=== PATIENT | female | born 1955 | race Caucasian/White ===

== ENCOUNTER 2017-09-12 22:44 | Inpatient (IN) ==
[2017-09-12] MEDS ORDERED: VECURONIUM 10 MG VIAL IV ONE (22:46)
[2017-09-12] MEDS ORDERED: ETOMIDATE 20 MG/10 ML VIAL IV ONE (22:46)
[2017-09-12] MEDS ORDERED: SODIUM CHLORIDE 0.9% 1,000 ML IV STA (22:50)
[2017-09-12] MEDS ORDERED: VECURONIUM 10 MG VIAL IV STA (22:52)
[2017-09-12 23:03] LABS: ABG Base Excess -8.8 MMOL/L (-2.5-2.5); ABG HCO3 16.4 MMOL/L (20-26); ABG Oxygen Saturation 98.6 % (95-100); ABG PCO2 33.1 MM HG (35-48); ABG PH 7.313 (7.35-7.45); ABG PO2 192.3 MM HG (80-95); ABG TCO2 17.4 MMOL/L (23-27)
[2017-09-13 00:14] LABS: Basophils % 0.2 % (0.0-0.8); Hematocrit 34.4 VOL% (35.7-47.0); Hemoglobin 10.7 GM/DL (12.0-16.0); Immature Granulocytes % 0.8 %; Immature Granulocytes Absolute 0.18 #; Lymphocytes # 1.1 10*3/uL (1.4-4.0); Lymphocytes % 4.6 % (21.3-54.2); Mean Corpuscular HGB Conc 31.1 GM/DL (32-36); Mean Corpuscular Hemoglobin 29 PG (27-34); Mean Platelet Volume 9.2 FL (9.6-12.0); Monocytes # 0.7 10*3/uL (0.11-0.8); Monocytes % 3.1 % (1.7-12.7); Neutrophils % 91.3 % (38.7-73.9); Platelet Count 306 T/CUMM (130-400); Red Cell Distribution Width 13.4 % (9.3-17.3)
[2017-09-13 00:26] LABS: INR 1.2; PT Patient Result 12.3 SECS
[2017-09-13] MEDS ORDERED: ETOMIDATE 20 MG/10 ML VIAL IV STA (00:34)
[2017-09-13] MEDS ORDERED: PIPERACILLIN/TAZOBACTAM 3,375 MG in SODIUM CHLORIDE 0.9% 100 ML IV STA (00:37)
[2017-09-13] MEDS ORDERED: VANCOMYCIN INJ 1,000 MG in SODIUM CHLORIDE 0.9% 250 ML IV STA (00:37)
[2017-09-13 00:41] LABS: Ammonia 34 UMOL/L (11-32); Lactic Acid 5.8 MMOL/L (0.4-2.0)
[2017-09-13 00:47] LABS: Apearance,Urine CLOUDY (Clear); Bacteria,Urine Few /HPF (Few); Bilirubin,Urine Negative (Negative); Blood, Urine Large mg/dL (Negative); Glucose,Urine (UA) Negative (Negative); Ketones,Urine Negative (Negative); Mucus,Urine Occasional /LPF (Occasional); Nitrite,Urine Negative (Negative); Protein,Urine Negative; RBC,Urine 14 /HPF (0-4); Squamous Epithelial Cell,Urine Occasional /HPF (0-10); Urine Color Yellow (Yellow); Urine Specific Gravity 1.005 (1.001-1.035); Urine Urobilinogen < 2.0 EU/DL (0.2-1.0); WBC,Urine 431 /HPF (0-6)
[2017-09-13 00:49] LABS: Alanine Aminotransferase 1339 U/L (13-56); Albumin 2.8 G/DL (3.4-5.0); Alkaline Phosphatase 79 U/L (45-117); Aspartate Amino Transferase 2912 U/L (0-37); Blood Urea Nitrogen 29 MG/DL (7-18); Calcium 7.5 MG/DL (8.5-10.1); Glucose 59 MG/DL (74-106); Osmolality,Calculated 278.7 MOS/KG (273-304); Potassium 5.3 MMOL/L (3.5-5.1); Sodium 138 MMOL/L (136-145); Total Protein 6.9 G/DL (6.4-8.3)
[2017-09-13] MEDS ORDERED: PIPERACILLIN/TAZOBACTAM 3,375 MG VIAL IV ONE (01:08)
[2017-09-13] MEDS ORDERED: VANCOMYCIN 1,000 MG VIAL ONE (01:08)
[2017-09-13] MEDS ORDERED: SODIUM CHLORIDE 0.9% 1,850 ML IV ONE (01:15)
[2017-09-13] MEDS ORDERED: DEXTROSE 50% 25 GM/50 ML SYRINGE IV ONE (01:18)
[2017-09-13] MEDS ORDERED: DEXTROSE 50% 25 GM/50 ML VIAL IV STA (01:18)
[2017-09-13 01:21] LABS: Sedimentation Rate-Westergren 94 MM/HR (0-30)
[2017-09-13] MEDS ORDERED: cefTRIAXone 1,000 MG VIAL ONE (01:26)
[2017-09-13] MEDS ORDERED: SODIUM CHLORIDE 0.9% 1,000 ML IV SCH ×2 (01:30→03:00)
[2017-09-13] MEDS ORDERED: ONDANSETRON 4 MG/2 ML VIAL IV PRN (02:53)
[2017-09-13] MEDS ORDERED: ALBUTEROL/IPRATROPIUM 3 ML NEB RESP TX PRN (02:53)
[2017-09-13] MEDS ORDERED: ALBUTEROL 2.5 MG/3 ML NEB RESP TX PRN (02:53)
[2017-09-13] MEDS ORDERED: ACETAMINOPHEN 325 MG TABLET NG PRN (02:53)
[2017-09-13 03:30] LABS: Barbiturates Screen,Urine Negative (Negative); Benzodiazepines Screen,Urine Positive (Negative); Cannabinoid Screen,Urine Negative (Negative); Opiate Screen,Urine Positive (Negative); Phencyclidine Screen,Urine Negative (Negative)
[2017-09-13] MEDS ORDERED: GLUCAGON 1 MG VIAL IM PRN (03:54)
[2017-09-13] MEDS ORDERED: cefTRIAXone 1,000 MG in SYRINGE 1 EACH IV SCH (04:00)
[2017-09-13] MEDS ORDERED: CALCIUM GLUCONATE 1,000 MG in SODIUM CHLORIDE 0.9% 100 ML IV ONE (04:00)
[2017-09-13] MEDS: PROPOFOL 1,000 MG/100 ML BOTTLE IV SCH (04:33)
[2017-09-13] MEDS ORDERED: SODIUM CHLORIDE 0.9% 1,000 ML IV ONE ×3 (04:37→08:35)
[2017-09-13 04:50] LABS: INR 1.3
[2017-09-13 05:05] LABS: Lactic Acid 6.5 MMOL/L (0.4-2.0)
[2017-09-13] MEDS: DEXTROSE 50% 25 GM/50 ML VIAL IV PRN (05:26)
[2017-09-13] MEDS ORDERED: ENOXAPARIN 60 MG/0.6 ML SYRINGE SUBCUT SCH (06:00)
[2017-09-13 07:21] LABS: Basophils # 0.1 10*3/uL (0.0-0.2); Basophils % 0.2 % (0.0-0.8); Hematocrit 31.5 VOL% (35.7-47.0); Hemoglobin 9.5 GM/DL (12.0-16.0); Immature Granulocytes % 0.4 %; Immature Granulocytes Absolute 0.09 #; Lymphocytes # 1.3 10*3/uL (1.4-4.0); Lymphocytes % 5.6 % (21.3-54.2); Mean Corpuscular HGB Conc 30.2 GM/DL (32-36); Mean Corpuscular Hemoglobin 29 PG (27-34); Mean Corpuscular Volume 96.6 FL (87-102); Mean Platelet Volume 9.3 FL (9.6-12.0); Monocytes % 4.2 % (1.7-12.7); Neutrophils # 20.3 10*3/uL (1.4-7.4); Neutrophils % 89.6 % (38.7-73.9); Platelet Count 201 T/CUMM (130-400); Red Blood Count 3.26 MC/CUMM (3.8-5.5); Red Cell Distribution Width 13.6 % (9.3-17.3); White Blood Count 22.6 T/CUMM (4-12)
[2017-09-13 07:40] LABS: Band Neutrophils 15 % (0-10); Burr Cells Slight; Giant Platelets Few; Lymphocytes 5 % (20-55); Ovalocytes Slight; Platelet Estimate Adequate; Segmented Neutrophils 79 % (50-85); Total Cells Counted 100
[2017-09-13] MEDS: NOREPINEPHRINE 16 MG in SODIUM CHLORIDE 0.9% 234 ML IV PRN ×2 (08:00→19:01)
[2017-09-13] MEDS ORDERED: PHENYLEPHRINE DRIP 0 MG/0 ML PREMIX IV ONE (08:07)
[2017-09-13] MEDS ORDERED: NOREPINEPHRINE 4 MG/4 ML VIAL IV ONE (08:09)
[2017-09-13 08:16] LABS: ABG Base Excess -17.6 MMOL/L (-2.5-2.5); ABG HCO3 11.2 MMOL/L (20-26); ABG Oxygen Saturation 97.5 % (95-100); ABG PCO2 34.5 MM HG (35-48); ABG TCO2 10.5 MMOL/L (23-27)
[2017-09-13 08:17] LABS: CKMB % 0.9 %
[2017-09-13 08:19] LABS: Albumin 1.8 G/DL (3.4-5.0); Bilirubin,Total 0.9 MG/DL (0.2-1.0); Calcium 6.4 MG/DL (8.5-10.1); Osmolality,Calculated 287.5 MOS/KG (273-304)
[2017-09-13 08:19] LABS: ABG PH 7.113 (7.35-7.45)
[2017-09-13 08:22] LABS: Risk Ratio 2.64; Thyroid Stimulating Hormone 1.42 uIU/ml (0.358-3.74); VLDL CHOLESTEROL 15.2 MG/DL
[2017-09-13] MEDS ORDERED: SODIUM BICARBONATE 50 MEQ/50 ML VIAL IV ONE (08:22)
[2017-09-13] MEDS ORDERED: SODIUM BICARBONATE 50 MEQ/50 ML SYRINGE IV ONE (08:22)
[2017-09-13] MEDS ORDERED: SODIUM POLYSTYRENE SULFATE 15 GM/60 ML BOTTLE PO ONE (08:27)
[2017-09-13] MEDS ORDERED: SODIUM BICARB INJ 100 MEQ in DEXTROSE 5% NACL 0.45% 1,000 ML IV SCH (08:30)
[2017-09-13] MEDS: PANTOPRAZOLE 40 MG VIAL IV SCH (08:42)
[2017-09-13] MEDS ORDERED: ENOXAPARIN 30 MG/0.3 ML SYRINGE SUBCUT SCH (10:00)
[2017-09-13] MEDS ORDERED: POTASSIUM CHLORIDE 20 MEQ/15 ML UDCUP PER TUBE PRN (10:08)
[2017-09-13] MEDS ORDERED: MAGNESIUM SULF RIDER 1 GM in PREMIX 1 EACH IV ONE (10:10)
[2017-09-13] MEDS ORDERED: DEXTROSE 50% 25 GM/50 ML VIAL IV ONE ×2 (10:11→10:30)
[2017-09-13] MEDS ORDERED: INSULIN REGULAR 100 UNIT/ML IV ONE (10:12)
[2017-09-13] MEDS: SODIUM BICARB INJ 100 MEQ in DEXTROSE 5% 1,000 ML IV SCH ×4 (10:22→19:04)
[2017-09-13] MEDS ORDERED: CALCIUM GLUCONATE 2,000 MG in SODIUM CHLORIDE 0.9% 100 ML IV ONE ×2 (10:30→20:17)
[2017-09-13] MEDS: LACTULOSE 20 GM/30 ML UDCUP PO SCH ×3 (10:36→22:06)
[2017-09-13 10:56] LABS: Osmolality,Calculated 295.8 MOS/KG (273-304); Potassium 5.3 MMOL/L (3.5-5.1)
[2017-09-13 11:02] LABS: Calcium 5.6 MG/DL (8.5-10.1)
[2017-09-13 11:11] LABS: CKMB % 0.9 %
[2017-09-13 11:16] LABS: Troponin I Only 20.7 NG/ML (0.00-0.045)
[2017-09-13 11:58] LABS: Hepatitis A Ab IgM Quant 0.11 Index; Hepatitis A Ab IgM Result Negative (Negative); Hepatitis B Core IgM Quant 0.18 Index; Hepatitis B Core IgM Result Negative (Negative); Hepatitis B Surface Ag Quant < 0.10 Index; Hepatitis B Surface Ag Result Negative (Negative); Hepatitis C Virus Ab Quant > 11.00 Index; Hepatitis C Virus Ab Result Positive (Negative)
[2017-09-13] MEDS ORDERED: VANCOMYCIN INJ 1,000 MG in SODIUM CHLORIDE 0.9% 250 ML IV PRN (12:00)
[2017-09-13 12:46] LABS: Band Neutrophils 5 % (0-10); Hypochromasia 2+; Lymphocytes 5 % (20-55); Microcytosis 2+; Platelet Estimate Adequate; Segmented Neutrophils 88 % (50-85); Total Cells Counted 100
[2017-09-13] MEDS: PIPERACILLIN/TAZOBACTAM 3,375 MG in SODIUM CHLORIDE 0.9% 100 ML IV SCH (13:45)
[2017-09-13 14:11] LABS: Albumin 1.6 G/DL (3.4-5.0); Bilirubin,Total 0.6 MG/DL (0.2-1.0); Calcium 6.3 MG/DL (8.5-10.1); Osmolality,Calculated 301.1 MOS/KG (273-304); Potassium 4.4 MMOL/L (3.5-5.1); Total Protein 4.6 G/DL (6.4-8.3)
[2017-09-13 15:31] LABS: ABG Base Excess -12.3 MMOL/L (-2.5-2.5); ABG HCO3 12.4 MMOL/L (20-26); ABG PCO2 26.2 MM HG (35-48); ABG PH 7.292 (7.35-7.45); ABG PO2 105.4 MM HG (80-95); ABG TCO2 13.2 MMOL/L (23-27)
[2017-09-13 15:32] LABS: Allen Test Positive; Pt O2 Delivery Device Ventilator
[2017-09-13 15:33] LABS: ABG Oxygen Saturation 97.4 % (95-100)
[2017-09-13 16:44] LABS: CKMB % 0.8 %
[2017-09-13 16:48] LABS: Troponin I Only 28.7 NG/ML (0.00-0.045)
[2017-09-13] MEDS: ALBUMIN 25% 25 GM in PREMIX 1 EACH IV SCH (17:15)
[2017-09-13 20:08] LABS: Albumin 1.8 G/DL (3.4-5.0); Bilirubin,Total 0.7 MG/DL (0.2-1.0); Osmolality,Calculated 298.5 MOS/KG (273-304); Potassium 3.9 MMOL/L (3.5-5.1); Total Protein 4.3 G/DL (6.4-8.3)
[2017-09-13 20:12] LABS: Calcium 5.8 MG/DL (8.5-10.1)
[2017-09-13 23:09] LABS: Calcium 6.9 MG/DL (8.5-10.1); Osmolality,Calculated 293.7 MOS/KG (273-304); Potassium 3.9 MMOL/L (3.5-5.1)
[2017-09-13 23:23] LABS: CKMB % 0.8 %
[2017-09-13 23:26] LABS: Troponin I Only 32.7 NG/ML (0.00-0.045)
[2017-09-14] MEDS: ALBUMIN 25% 25 GM in PREMIX 1 EACH IV SCH ×2 (00:15→08:17)
[2017-09-14] MEDS: PIPERACILLIN/TAZOBACTAM 3,375 MG in SODIUM CHLORIDE 0.9% 100 ML IV SCH ×2 (01:20→13:32)
[2017-09-14] MEDS: SODIUM BICARB INJ 100 MEQ in DEXTROSE 5% 1,000 ML IV SCH ×2 (03:33→15:27)
[2017-09-14] MEDS: LACTULOSE 20 GM/30 ML UDCUP PO SCH ×4 (03:33→22:03)
[2017-09-14 03:46] LABS: Basophils # 0.1 10*3/uL (0.0-0.2); Basophils % 0.5 % (0.0-0.8); Eosinophils # 0.1 10*3/uL (0.0-0.87); Eosinophils % 0.4 % (0.00-10.9); Hematocrit 29.1 VOL% (35.7-47.0); Hemoglobin 9.2 GM/DL (12.0-16.0); Immature Granulocytes % 1.2 %; Lymphocytes # 1.1 10*3/uL (1.4-4.0); Lymphocytes % 6.5 % (21.3-54.2); Mean Corpuscular HGB Conc 31.6 GM/DL (32-36); Mean Corpuscular Hemoglobin 29 PG (27-34); Mean Corpuscular Volume 91.2 FL (87-102); Monocytes # 0.7 10*3/uL (0.11-0.8); Monocytes % 3.9 % (1.7-12.7); NRBC # 0.02 10*3/uL; Neutrophils # 14.8 10*3/uL (1.4-7.4); Neutrophils % 87.5 % (38.7-73.9); Platelet Count 200 T/CUMM (130-400); Red Blood Count 3.19 MC/CUMM (3.8-5.5); Red Cell Distribution Width 13.8 % (9.3-17.3)
[2017-09-14 04:14] LABS: INR 1.7; PT Patient Result 17.7 SECS
[2017-09-14 04:24] LABS: CKMB % 0.6 %
[2017-09-14 04:26] LABS: Albumin 2.3 G/DL (3.4-5.0); Bilirubin,Total 0.8 MG/DL (0.2-1.0); Calcium 6.8 MG/DL (8.5-10.1); Osmolality,Calculated 293.5 MOS/KG (273-304); Potassium 4.3 MMOL/L (3.5-5.1); Total Protein 5.2 G/DL (6.4-8.3)
[2017-09-14 04:35] LABS: Troponin I Only 27.2 NG/ML (0.00-0.045)
[2017-09-14 04:55] LABS: ABG Base Excess -8.5 MMOL/L (-2.5-2.5); ABG HCO3 17.7 MMOL/L (20-26); ABG Oxygen Saturation 95.9 % (95-100); ABG PCO2 31.9 MM HG (35-48); ABG PH 7.323 (7.35-7.45); ABG PO2 91.8 MM HG (80-95); ABG TCO2 14.6 MMOL/L (23-27); Allen Test Positive; Pt O2 Delivery Device Ventilator
[2017-09-14 05:56] LABS: Band Neutrophils 29 % (0-10); Lymphocytes 4 % (20-55); Metamyelocytes 3 %; Platelet Estimate Normal; Segmented Neutrophils 62 % (50-85); Total Cells Counted 100
[2017-09-14] MEDS: NOREPINEPHRINE 16 MG in SODIUM CHLORIDE 0.9% 234 ML IV PRN ×2 (08:00→16:27)
[2017-09-14] MEDS: PANTOPRAZOLE 40 MG VIAL IV SCH (08:18)
[2017-09-14 08:22] LABS: Albumin 2.1 G/DL (3.4-5.0); Bilirubin,Total 0.9 MG/DL (0.2-1.0); Calcium 6.4 MG/DL (8.5-10.1); Osmolality,Calculated 290.7 MOS/KG (273-304); Potassium 4.7 MMOL/L (3.5-5.1); Total Protein 4.8 G/DL (6.4-8.3)
[2017-09-14] MEDS: PROPOFOL 1,000 MG/100 ML BOTTLE IV SCH (08:24)
[2017-09-14] MEDS ORDERED: SODIUM CHLORIDE 0.9% 1,000 ML IV ONE ×2 (08:35→23:27)
[2017-09-14] MEDS: PHENYLEPHRINE INJ 160 MG in SODIUM CHLORIDE 0.9% 234 ML IV PRN (08:47)
[2017-09-14] MEDS: PANTOPRAZOLE INJ 200 MG in SODIUM CHLORIDE 0.9% 250 ML IV SCH (10:21)
[2017-09-14] MEDS: SUCRALFATE 1 GM/10 ML UDCUP NG SCH ×2 (11:50→17:01)
[2017-09-14] MEDS ORDERED: MINERAL OIL/PETROLATUM OPH OINT 3.5 GM TUBE BOTH EYES PRN (12:14)
[2017-09-14] MEDS: SODIUM BICARB INJ 100 MEQ in DEXTROSE 10% 1,000 ML IV SCH (19:40)
[2017-09-14] MEDS: DEXTROSE 50% 25 GM/50 ML VIAL IV PRN (19:48)
[2017-09-14] MEDS ORDERED: DOPamine 800 MG/250 ML PREMIX IV PRN (23:48)
[2017-09-14 23:56] LABS: Hematocrit 25.3 VOL% (35.7-47.0); Hemoglobin 7.5 GM/DL (12.0-16.0); Immature Granulocytes % 0.6 %; Immature Granulocytes Absolute 0.14 #; Lymphocytes # 1.8 10*3/uL (1.4-4.0); Lymphocytes % 8.1 % (21.3-54.2); Mean Corpuscular HGB Conc 29.6 GM/DL (32-36); Mean Corpuscular Hemoglobin 29 PG (27-34); Mean Corpuscular Volume 98.4 FL (87-102); Mean Platelet Volume 9.8 FL (9.6-12.0); Monocytes % 4.7 % (1.7-12.7); NRBC # 0.08 10*3/uL; Neutrophils # 18.9 10*3/uL (1.4-7.4); Neutrophils % 86.6 % (38.7-73.9); Platelet Count 128 T/CUMM (130-400); Red Blood Count 2.57 MC/CUMM (3.8-5.5); Red Cell Distribution Width 14.6 % (9.3-17.3); White Blood Count 21.9 T/CUMM (4-12)
[2017-09-15] MEDS ORDERED: SODIUM CHLORIDE 0.9% 1,000 ML IV ONE ×2 (00:17→01:07)
[2017-09-15] MEDS ORDERED: HYDROCORTISONE 100 MG VIAL ONE (00:17)
[2017-09-15] MEDS: NOREPINEPHRINE 16 MG in SODIUM CHLORIDE 0.9% 234 ML IV PRN ×2 (00:18→09:20)
[2017-09-15 00:20] LABS: Atypical Lymphocytes 1+; Band Neutrophils 24 % (0-10); Burr Cells Few; Lymphocytes 31 % (20-55); Macrocytosis 2+; Nucleated Red Blood Cells 2 (0-5); Platelet Estimate Decreased; Segmented Neutrophils 39 % (50-85); Total Cells Counted 100
[2017-09-15 00:30] LABS: Calcium 7.4 MG/DL (8.5-10.1)
[2017-09-15] MEDS ORDERED: HYDROCORTISONE 100 MG VIAL IV ONE (00:30)
[2017-09-15] MEDS ORDERED: EPINEPHrine 1 MG/ML VIAL ONE (00:31)
[2017-09-15 00:34] LABS: Albumin 1.9 G/DL (3.4-5.0); Osmolality,Calculated 287.8 MOS/KG (273-304); Potassium 5.9 MMOL/L (3.5-5.1)
[2017-09-15 00:36] LABS: Total Protein 4.1 G/DL (6.4-8.3)
[2017-09-15 01:11] LABS: ABG Base Excess -25.4 MMOL/L (-2.5-2.5); ABG HCO3 6.1 MMOL/L (20-26); ABG Oxygen Saturation 96.9 % (95-100); ABG PCO2 29.1 MM HG (35-48); ABG TCO2 5.9 MMOL/L (23-27)
[2017-09-15] MEDS ORDERED: SODIUM BICARBONATE 50 MEQ/50 ML SYRINGE IV ONE ×3 (01:14→08:08)
[2017-09-15] MEDS: SUCRALFATE 1 GM/10 ML UDCUP NG SCH ×2 (01:39→05:09)
[2017-09-15 01:41] LABS: Basophils # 0.1 10*3/uL (0.0-0.2); Basophils % 0.7 % (0.0-0.8); Eosinophils % 0.1 % (0.00-10.9); Hematocrit 20.3 VOL% (35.7-47.0); Immature Granulocytes % 0.7 %; Immature Granulocytes Absolute 0.11 #; Lymphocytes % 12.1 % (21.3-54.2); Mean Corpuscular Hemoglobin 29 PG (27-34); Mean Corpuscular Volume 96.7 FL (87-102); Mean Platelet Volume 10.4 FL (9.6-12.0); Monocytes # 0.8 10*3/uL (0.11-0.8); Monocytes % 4.7 % (1.7-12.7); Neutrophils # 13.5 10*3/uL (1.4-7.4); Neutrophils % 81.7 % (38.7-73.9); Platelet Count 108 T/CUMM (130-400); Red Cell Distribution Width 14.6 % (9.3-17.3); White Blood Count 16.5 T/CUMM (4-12)
[2017-09-15 01:44] LABS: Hemoglobin 6.1 GM/DL (12.0-16.0)
[2017-09-15 02:01] LABS: Band Neutrophils 33 % (0-10); Lymphocytes 27 % (20-55); Nucleated Red Blood Cells 2 (0-5); Segmented Neutrophils 33 % (50-85); Total Cells Counted 100
[2017-09-15 02:02] LABS: Atypical Lymphocytes 1+; Burr Cells 1+; Macrocytosis 1+; Platelet Estimate Decreased
[2017-09-15 02:06] LABS: Calcium 6.9 MG/DL (8.5-10.1); Potassium 5.9 MMOL/L (3.5-5.1)
[2017-09-15] MEDS ORDERED: SODIUM CHLORIDE 0.9% 1,000 ML IV PRN (02:11)
[2017-09-15] MEDS: PHENYLEPHRINE INJ 160 MG in SODIUM CHLORIDE 0.9% 234 ML IV PRN ×2 (02:40→09:47)
[2017-09-15] MEDS: PIPERACILLIN/TAZOBACTAM 3,375 MG in SODIUM CHLORIDE 0.9% 100 ML IV SCH (02:51)
[2017-09-15] MEDS: LACTULOSE 20 GM/30 ML UDCUP PO SCH ×2 (04:00→09:46)
[2017-09-15 04:13] LABS: ABG Base Excess -22.5 MMOL/L (-2.5-2.5); ABG HCO3 6.7 MMOL/L (20-26); ABG Oxygen Saturation 97.2 % (95-100); ABG PCO2 26.7 MM HG (35-48); ABG PO2 133.8 MM HG (80-95); ABG TCO2 7.5 MMOL/L (23-27)
[2017-09-15 04:19] LABS: ABG PH 7.017 (7.35-7.45)
[2017-09-15 04:39] LABS: INR 2.1
[2017-09-15 04:57] LABS: PT Patient Result 21.1 SECS
[2017-09-15 05:21] LABS: Albumin 1.5 G/DL (3.4-5.0); Bilirubin,Total 1.6 MG/DL (0.2-1.0); Calcium 6.3 MG/DL (8.5-10.1); Osmolality,Calculated 295.3 MOS/KG (273-304); Potassium 5.9 MMOL/L (3.5-5.1); Total Protein 3.5 G/DL (6.4-8.3)
[2017-09-15 05:50] LABS: CKMB % 0.9 %
[2017-09-15 05:54] LABS: Troponin I Only 6.09 NG/ML (0.00-0.045)
[2017-09-15 06:25] LABS: Basophils % 0.1 % (0.0-0.8); Hematocrit 27.5 VOL% (35.7-47.0); Mean Corpuscular HGB Conc 29.8 GM/DL (32-36)
[2017-09-15 06:30] LABS: Immature Granulocytes % 0.3 %; Immature Granulocytes Absolute 0.05 #; Lymphocytes # 1.4 10*3/uL (1.4-4.0); Lymphocytes % 8.8 % (21.3-54.2); Mean Corpuscular Hemoglobin 29 PG (27-34); Mean Corpuscular Volume 95.5 FL (87-102); Mean Platelet Volume 10.3 FL (9.6-12.0); Monocytes # 0.6 10*3/uL (0.11-0.8); Monocytes % 3.4 % (1.7-12.7); Neutrophils # 14.2 10*3/uL (1.4-7.4); Neutrophils % 87.4 % (38.7-73.9); Platelet Count 109 T/CUMM (130-400); Red Cell Distribution Width 15.6 % (9.3-17.3); White Blood Count 16.2 T/CUMM (4-12)
[2017-09-15 06:33] LABS: Red Blood Count 2.88 MC/CUMM (3.8-5.5)
[2017-09-15 06:34] LABS: Hemoglobin 8.2 GM/DL (12.0-16.0)
[2017-09-15 06:50] LABS: Band Neutrophils 26 % (0-10); Lymphocytes 22 % (20-55); Segmented Neutrophils 41 % (50-85); Total Cells Counted 100
[2017-09-15 06:51] LABS: Burr Cells 1+; Macrocytosis 1+; Platelet Estimate Decreased
[2017-09-15 07:13] LABS: ABG Base Excess -21.3 MMOL/L (-2.5-2.5); ABG HCO3 8.8 MMOL/L (20-26); ABG Oxygen Saturation 97.2 % (95-100); ABG PCO2 27.1 MM HG (35-48); ABG TCO2 7.6 MMOL/L (23-27)
[2017-09-15 07:14] LABS: ABG PH 7.064 (7.35-7.45)
[2017-09-15 08:49] LABS: ABG Base Excess -16.3 MMOL/L (-2.5-2.5); ABG Oxygen Saturation 97.6 % (95-100); ABG PCO2 29.9 MM HG (35-48); ABG TCO2 10.6 MMOL/L (23-27)
[2017-09-15 08:51] LABS: ABG PH 7.177 (7.35-7.45)
[2017-09-15] MEDS: SODIUM BICARB INJ 100 MEQ in DEXTROSE 10% 1,000 ML IV SCH (09:22)
[2017-09-15] MEDS: PANTOPRAZOLE INJ 200 MG in SODIUM CHLORIDE 0.9% 250 ML IV SCH (09:43)
[2017-09-15 10:18] VITALS: BP 74/25
== END 2017-09-15 10:27 | disposition expired | DRG 871 ==
LOC: N.ED 22:44 → SUATTDRO 09-13 02:47 → N.EDINP 09-13 02:47 → N.ICU 09-13 03:05
PROVIDERS: ADMIT Internal Medicine; ATTEND Family Medicine